=== PATIENT | male | born 1990 | race Caucasian/White ===

== ENCOUNTER 2019-01-25 11:18 | Emergency (ER) | payer OTHER ==
[~2019-01-25] VITALS: Ht 165.1 cm; Wt 72.6 kg
[2019-01-25 11:20] VITALS: BP 134/87
--- NOTE | 2019-01-25 11:20 | NUR ---
PATIENT AMBULATED TO ER CHAIR E.
[2019-01-25 11:30] VITALS: BP 134/87
--- NOTE | 2019-01-25 11:30 | NUR ---
PT IS A 28 Y/O MALE WHO PRESENTS TO THE ED C/O NEEDLESTICK. 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 NO OBVIOUS BLEEDING OR TRAUMA. NOTED SMALL DENT/CUT TO FINGER. NO BLEEDING. PT DENIES CP, SOB, N/V/D. PT AWAKE AND ALERT, RR EVEN/UNLABORED. PT REPOSITIONED FOR COMFORT, PT SITTING IN CHAIR. ER MD NOTIFIED. WILL CONTINUE TO MONITOR. DENIES PMH NKA
[2019-01-27 06:07] LABS: HEPATITIS B CORE AB TOTAL Negative (Negative); HEPATITIS B SURFACE ANTIBODY Reactive (.); HEPATITIS B SURFACE ANTIGEN Negative (Negative); HEPATITIS C VIRUS ANTIBODY <0.1 s/co ratio (0.0-0.9)
== END 2019-01-25 12:30 | disposition home or self-care (01) ==
LOC: MED 11:18
DX: S61.233A Puncture wound without foreign body of left middle finger without damage to nail, initial encounter (principal); W57.XXXA Bitten or stung by nonvenomous insect and other nonvenomous arthropods, initial encounter; Y93.89 Activity, other specified; Y92.89 Other specified places as the place of occurrence of the external cause; Y99.8 Other external cause status
CPT/HCPCS: 36415; 86702; 86704; 86706; 86803; 87340; 90471; 90715; 99283